=== PATIENT | male | born 1965 | race Caucasian/White ===

== ENCOUNTER 2020-04-03 14:53 | Outpatient (REF) | payer OTHER, SELFPAY | END 2020-04-03 14:54 | disposition home or self-care (01) | LOC: HO.LAB 14:53 | PROVIDERS: PCP Internal Medicine; Visit Provider Internal Medicine | DX: Z20.828 Contact with and (suspected) exposure to other viral communicable diseases (principal) | CPT/HCPCS: C9803; U0003 ==

== ENCOUNTER 2020-04-08 12:04 | Emergency (ER) | payer OTHER, SELFPAY ==
[2020-04-08 12:12] VITALS: BP 135/73; PULSE 99; RESP 18; TEMP 39; O2SAT 94; BMI 31.5
--- NOTE | 2020-04-08 12:21 | XR_ITS ---
EXAMINATION: PORTABLE CHEST 1 VIEW CLINICAL INFORMATION: SOB . COMPARISON: No recent pertinent prior studies are available for comparison. TECHNIQUE: Portable frontal view of the chest was obtained. FINDINGS: The lungs are mildly hypoexpanded with patchy bilateral airspace disease seen with a peripheral predominance. No significant effusion or pneumothorax. Cardiac silhouette is prominent although this may be technique related. No acute bony abnormality.. No focal infiltrate, effusion, edema, or pneumothorax. Cardiac and mediastinal silhouettes are within normal limits for technique. No acute bony abnormality seen. XR/XR chest 1V IMPRESSION: Although hypoexpanded, there is patchy bilateral airspace disease seen with a peripheral predominance. In the acute setting, viral or atypical infectious etiology would be suspected.
--- NOTE | 2020-04-08 12:21 | ECG_ITS ---
Test Reason : WEAKNESS Blood Pressure : / mmHG Vent. Rate : 067 BPM Atrial Rate : 067 BPM P-R Int : 184 ms QRS Dur : 100 ms QT Int : 418 ms P-R-T Axes : 032 126 023 degrees QTc Int : 441 ms Normal sinus rhythm Right axis deviation Nonspecific T wave abnormality Abnormal ECG No previous ECGs available Referred By: Richi Reyes Electronically Signed By:Brendan Barth
[2020-04-08] MEDS: Acetaminophen 325 MG TABLET 975 MG PO (12:29)
[2020-04-08 12:38] LABS: Basophils Percent Auto 0.1 % (0-2); Hematocrit 43.5 % (42-52); Hemoglobin 15.2 g/dl (14.0-18.0); Imm Gran Abs Auto 0.02 X10*3/uL (0.00-0.03); Imm Gran Pct Auto 0.2 % (0.0-0.4); Lymphocytes Absolute Auto 1.2 X10*3/uL (1.2-4.9); Lymphocytes Percent Auto 12.9 % (20-40); MANUAL DIFF FLAG NO; Mean Corpuscular HGB Conc 34.9 g/dl (31.0-36.0); Mean Corpuscular Hemoglobin 30.5 pg (27.0-33.0); Mean Corpuscular Volume 87.3 fL (80-98); Mean Platelet Volume 11.1 fL (9.4-12.4); Monocytes Absolute Auto 0.6 X10*3/uL (0.1-1.2); Monocytes Percent Auto 6.1 % (2-11); Neutrophils Absolute Auto 7.5 X10*3/uL (2.0-8.3); Neutrophils Percent Auto 80.7 % (45-73); Platelet Count 170 X10*3/uL (160-400); Red Blood Count 4.98 X10*6/uL (4.60-5.80); Red Cell Distribution Width 12.4 % (11.0-16.0); White Blood Count 9.3 X10*3/uL (4.8-10.8)
[2020-04-08 12:47] LABS: INTERNATIONAL NORM RATIO 1.2 (0.9-1.1); Prothrombin Time 14.3 SEC (10.8-13.0)
[2020-04-08 12:49] LABS: Partial Thromboplastin Time 30.2 SEC (24.1-38.0)
[2020-04-08 12:50] LABS: D Dimer 541 NG/ML
[2020-04-08 13:06] LABS: Lactic Acid 1.9 mmol/L (0.5-2.0)
[2020-04-08 13:14] LABS: B Type Natriuretic Peptide < 10 pg/mL (<100); Troponin-I High Sensitivity < 3.5 ng/L (<3.5-35.0)
[2020-04-08 13:15] LABS: Alanine Aminotransferase 29 U/L (0-40); Albumin Level 3.8 g/dL (3.5-5.0); Alkaline Phosphatase 53 U/L (39-117); Anion Gap 16 (12-20); Aspartate Amino Transferase 33 U/L (5-37); Bilirubin Total 0.8 mg/dL (0.0-1.0); Blood Urea Nitrogen 19 mg/dL (9-16); C Reactive Protein 9.64 mg/dL (< or = 0.50); Calcium 8.1 mg/dL (8.4-10.2); Carbon Dioxide 21 mmol/L (22-29); Chloride 103 mmol/L (96-108); Creatinine Clr Calc Pharmacy 82.9; Estimated Glomerular Filt Rate > 60; Glucose Random 125 mg/dL (60-115); Lactate Dehydrogenase 340 U/L (118-273); Potassium 3.6 mmol/l (3.3-5.1); Sodium 136 mmol/L (135-145)
[2020-04-08 13:22] VITALS: BP 102/61; PULSE 92; RESP 20; TEMP 38.6; O2SAT 94
--- NOTE | 2020-04-08 13:26 | PC.NURSE ---
EATING APPLE SAUCE AND LYNNETTE ABI
[2020-04-08 13:30] LABS: Procalcitonin 0.05 ng/mL
[2020-04-08] MEDS: Ibuprofen 800 MG TABLET PO (14:11)
[2020-04-08 14:28] VITALS: O2SAT 91
--- NOTE | 2020-04-08 15:09 | ED.GENADULT ---
HPI - General Adult General Chief complaint: Weakness Stated complaint: +COVID,N/V,WEAKNESS Time Seen by Provider: 04/08/20 12:09 Source: patient and EMS Mode of arrival: EMS Limitations: no limitations History of Present Illness HPI narrative: This is a 54-year-old male who denies significant past medical history reports for the past 1 and 1/2 week he has had body aches, chills/cough which prompted him to get COVID tested on Friday (April 03 2020) for COVID-19 He his colon with stated that he tested positive and reports he has had continued worsening symptoms with body aches chills fever and some nausea but no vomiting and 1 episode of diarrhea. States he has not had any sick contacts or travel. Onset (ago): day(s) Radiation: non-radiation Associated symptoms: cough, fever/chills and nausea/vomiting Treatments prior to arrival: none Related Data Previous Rx's Medication Instructions Recorded albuterol sulfate 2 puff INHALATION Q4-6H PRN #18 g 04/08/20 azithromycin [Zithromax Z-Familia] 250 mg PO DAILY 5 Days #6 tab 04/08/20 benzonatate [Tessalon Perles] 100 mg PO BID PRN #10 cap 04/08/20 ibuprofen 800 mg PO Q8H PRN #20 tab 04/08/20 Allergies Allergy/AdvReac Type Severity Reaction Status Date / Time codeine Allergy Dizziness Verified 04/08/20 12:24 Review of Systems Review of Systems: Constitutional: No Weight loss, + Fever, + Chills, No Night Sweats, No Fatigue, No Malaise ENT/Mouth: No Hearing loss, No Ear Pain, + Nasal Congestion, + Sinus Pain, No Hoarseness, No sore throat, No Rhinorrhea, No Swallowing Difficulty Eyes: No Eye Pain, No Swelling, No Redness, No Foreign Body, No Discharge, No Vision Changes Cardiovascular: No Chest Pain, + SOB, No Dyspnea on Exertion, No Orthopnea, No Edema, No Palpitations Respiratory: + Cough, No Sputum, No Wheezing, No Smoke Exposure, No Dyspnea Gastrointestinal: No Nausea, No Vomiting, No Diarrhea, No Constipation, No abdominal Pain, No Hematochezia, No Melena Genitourinary: no irregular bleeding, No Dysuria, No Urinary Frequency, No Hematuria, No Urinary Incontinence, No Urgency, No Flank Pain, No Urinary Flow Changes, No Hesitancy Musculoskeletal: No joint pain, No Myalgias, No Joint Swelling Skin: No Skin Lesions, No rash Neuro: No Weakness, No Numbness, No Paresthesias, No Loss of Consciousness, No Dizziness, No Headache Psych: No Social Issues Heme/Lymph: No Bruising, No Bleeding,No Lymphadenopathy Endocrine: No Polyuria, No Polydipsia, No Temperature Intolerance Yes all other systems are reviewed and are negative [facility] Social History Social History Advance Directives: No Advance Directives Information Provided: No Physical Exam Vital Signs: Vital Signs: Last Vital Signs Temp 98.3 F 04/08/20 17:46 Pulse 71 04/08/20 17:46 Resp 19 04/08/20 17:46 BP 96/63 04/08/20 17:46 Pulse Ox 94 04/08/20 17:46 Body Mass Index 31.5 Reviewed Const: Other: Slightly diaphoretic General: cooperative and no acute distress; No intoxicated appearing Nutritional Appearance: average body habitus Orientation/consciousness: patient oriented x3 HENMT: Head: Yes normal to inspection Ears: hearing grossly normal bilaterally Eyes: General: appearance normal, both eyes and all related structures Visual Hodges: normal visual hodges by confrontation Neck: Neck: Yes normal visual inspection, No positive Brudzinski's sign, No positive Kernig's sign and No tender Thyroid: Thyroid normal Chest: Chest palpation & inspection: normal inspection of the chest Resp: Other: Dry bronchial cough Effort & Inspection: normal respiratory effort Auscultation: clear to auscultation bilaterally Cardio: Jugular venous distension: no JVD Rate: tachycardic Heart sounds: S1 normal heart sound present and S2 normal heart sound present GI: Inspection: Yes normal to inspection Percussion: Yes normal to percussion Auscultation: normal bowel sounds : General: Yes no CVA tenderness Back/Spine/Pelvis: Back: no CVA tenderness Skin: General skin exam: no rashes or lesions noted Neuro: General: patient oriented x3 Extrem: General: Yes normal to inspection Medical Decision Making MDM Narrative Medical decision making narrative: Labs overall stable consistent with COVID 19 disease. No leukocytosis. Slight elevation in D-dimer CT of the chest done no evidence of PE extensive pulmonary disease consistent with COVID-19. Patient fever improved with Tylenol and Motrin has been resting comfortably pulse ox at 95% on room air. Ambulatory steady gait no shortness of breath. Feels much better now that his temperature is down. No criteria for admission at this time did advise him to for self-monitoring, clear precaution return follow-up instructions provided. He feels comfortable plan. Stable for discharge. Lab Data Result diagrams: 04/08/20 12:04/08/20 12: Labs: Lab Results 04/08/20 04/08/20 04/08/20 Range/Units 12: 12: 12: WBC 9.3 (4.8-10.8) X10*3/uL RBC 4.98 (4.60-5.80) X10*6/uL Hgb 15.2 (14.0-18.0) g/dl Hct 43.5 (42-52) % MCV 87.3 (80-98) fL MCH 30.5 (27.0-33.0) pg MCHC 34.9 (31.0-36.0) g/dl RDW 12.4 (11.0-16.0) % Plt Count 170 (160-400) X10*3/uL MPV 11.1 (9.4-12.4) fL Immature Gran % (Auto) 0.2 (0.0-0.4) % Neut % (Auto) 80.7 H (45-73) % Lymph % (Auto) 12.9 L (20-40) % [place] % (Auto) 6.1 (2-11) % Eos % (Auto) 0.0 (0-4) % Baso % (Auto) 0.1 (0-2) % Lymph # (Auto) 1.2 (1.2-4.9) X10*3/uL [place] # (Auto) 0.6 (0.1-1.2) X10*3/uL Eos # (Auto) 0.0 (0.0-0.4) X10*3/uL Baso # (Auto) 0.0 (0.0-0.2) X10*3/uL Abs Immat Gran (auto) 0.02 (0.00-0.03) X10*3/uL Absolute Neuts (auto) 7.5 (2.0-8.3) X10*3/uL Absolute Nucleated RBC 0.000 (0.0-0.012) X10*3/uL Nucleated RBC % (auto) 0.0 (0.0-0.2) /100WBC PT 14.3 H (10.8-13.0) SEC INR 1.2 H (0.9-1.1) APTT 30.2 (24.1-38.0) SEC D-Dimer 541 NG/ML Sodium 136 (135-145) mmol/L Potassium 3.6 (3.3-5.1) mmol/l Chloride 103 (96-108) mmol/L Carbon Dioxide 21 L (22-29) mmol/L Anion Gap 16 (12-20) BUN 19 H (9-16) mg/dL Creatinine 1.22 (0.5-1.4) mg/dL Estim Creat Clear Calc 82.9 Estimated GFR > 60 Random Glucose 125 H (60-115) mg/dL Lactic Acid (0.5-2.0) mmol/L Calcium 8.1 L (8.4-10.2) mg/dL Total Bilirubin 0.8 (0.0-1.0) mg/dL AST 33 (5-37) U/L ALT 29 (0-40) U/L Alkaline Phosphatase 53 (39-117) U/L Lactate Dehydrogenase 340 H (118-273) U/L Troponin I High Sens (<3.5-35.0) ng/L C-Reactive Protein 9.64 H (< or = 0.50) mg/dL B-Natriuretic Peptide (<100) pg/mL Total Protein 7.0 (6.5-8.0) g/dL Albumin 3.8 (3.5-5.0) g/dL Procalcitonin ng/mL 04/08/20 04/08/20 04/08/20 Range/Units 12:26 12:26 12:26 WBC (4.8-10.8) X10*3/uL RBC (4.60-5.80) X10*6/uL Hgb (14.0-18.0) g/dl Hct (42-52) % MCV (80-98) fL MCH (27.0-33.0) pg MCHC (31.0-36.0) g/dl RDW (11.0-16.0) % Plt Count (160-400) X10*3/uL MPV (9.4-12.4) fL Immature Gran % (Auto) (0.0-0.4) % Neut % (Auto) (45-73) % Lymph % (Auto) (20-40) % [place] % (Auto) (2-11) % Eos % (Auto) (0-4) % Baso % (Auto) (0-2) % Lymph # (Auto) (1.2-4.9) X10*3/uL [place] # (Auto) (0.1-1.2) X10*3/uL Eos # (Auto) (0.0-0.4) X10*3/uL Baso # (Auto) (0.0-0.2) X10*3/uL Abs Immat Gran (auto) (0.00-0.03) X10*3/uL Absolute Neuts (auto) (2.0-8.3) X10*3/uL Absolute Nucleated RBC (0.0-0.012) X10*3/uL Nucleated RBC % (auto) (0.0-0.2) /100WBC PT (10.8-13.0) SEC INR (0.9-1.1) APTT (24.1-38.0) SEC D-Dimer NG/ML Sodium (135-145) mmol/L Potassium (3.3-5.1) mmol/l Chloride (96-108) mmol/L Carbon Dioxide (22-29) mmol/L Anion Gap (12-20) BUN (9-16) mg/dL Creatinine (0.5-1.4) mg/dL Estim Creat Clear Calc Estimated GFR Random Glucose (60-115) mg/dL Lactic Acid 1.9 (0.5-2.0) mmol/L Calcium (8.4-10.2) mg/dL Total Bilirubin (0.0-1.0) mg/dL AST (5-37) U/L ALT (0-40) U/L Alkaline Phosphatase (39-117) U/L Lactate Dehydrogenase (118-273) U/L Troponin I High Sens < 3.5 (<3.5-35.0) ng/L C-Reactive Protein (< or = 0.50) mg/dL B-Natriuretic Peptide < 10 (<100) pg/mL Total Protein (6.5-8.0) g/dL Albumin (3.5-5.0) g/dL Procalcitonin 0.05 ng/mL Imaging Data Chest x-ray: Radiologist's impression: [address] [address] XRay Report Signed Patient: Shola Danielson#: [id number] : 1965Acct:[id number] Age/Sex: 54 / MADM Date: 04/08/20 Loc: HO.ED Attending Dr: Ordering Physician: Richi Reyes NP Date of Service: 04/08/20 Procedure(s): XR chest 1V Accession Number(s): [id number] cc: Richi Reyes 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 COMPARISON: No recent pertinent prior studies are available for comparison. TECHNIQUE: Portable frontal view of the chest was obtained. FINDINGS: The lungs are mildly hypoexpanded with patchy bilateral airspace disease seen with a peripheral predominance. No significant effusion or pneumothorax. Cardiac silhouette is prominent although this may be technique related. No acute bony abnormality.. No focal infiltrate, effusion, edema, or pneumothorax. Cardiac and mediastinal silhouettes are within normal limits for technique. No acute bony abnormality seen. XR/XR chest 1V IMPRESSION: Although hypoexpanded, there is patchy bilateral airspace disease seen with a peripheral predominance. In the acute setting, viral or atypical infectious etiology would be suspected. 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 CT chest PE study: Radiologist's impression: [address] [address] [address] Scan Report Signed Patient: Shola Danielson#: [id number] : 1965Acct:[id number] Age/Sex: 54 / MADM Date: 04/08/20 Loc: HO.ED Attending Dr: Ordering Physician: Richi Reyes NP Date of Service: 04/08/20 Procedure(s): CT angio chest PE protocol Accession Number(s): [id number] cc: Richi Reyes NP~ EXAMINATION: CT ANGIOGRAM OF THE CHEST WITH AND WITHOUT CONTRAST (CT PULMONARY ANGIOGRAM FOR PE) CLINICAL INFORMATION: Reason for Exam SOB/ elevated ddimer / + COVID COMPARISON: None TECHNIQUE: Prior to contrast administration, noncontrast localization images were obtained. Subsequently, multidetector volumetric imaging was performed from the thoracic inlet to below the diaphragms following the administration of 80 mL Omnipaque 350 intravenous contrast. No contrast reaction reported Sagittal, coronal, and MIP oblique sagittal reformatted images were obtained on the CT workstation, uploaded to PACS, and reviewed. This CT examination was performed using dose optimization techniques as appropriate, variously including the following: *Automated exposure control *Adjustment of mA and/or kV according to patient size (this includes techniques or standardized protocols for targeted exams where dose is matched to indication/reason for exam; i.e. extremities or head) *Use of iterative reconstruction technique Total exam dose-length product 453 mGy-cm FINDINGS: QUALITY OF STUDY/CONTRAST BOLUS: Satisfactory. PULMONARY ARTERIES: No central or segmental pulmonary emboli. THORACIC AORTA: No aneurysm or dissection. LUNG: There is diffuse bilateral patchy central and peripheral airspace disease consistent with infiltrate. No large consolidation or mass seen. PLEURA: No pleural effusion or pneumothorax. MEDIASTINUM: Normal heart size. No pericardial effusion. No hilar or mediastinal lymphadenopathy. No evidence of septal bowing or right heart strain. The thyroid gland is mildly enlarged. CHEST WALL/AXILLA: No axillary or internal mammary lymphadenopathy. OSSEOUS STRUCTURES: No acute or suspicious osseous abnormality. Mild ventral spondylosis mid and lower dorsal spine. UPPER ABDOMEN: Unremarkable. No reflux of contrast into the hepatic veins to suggest elevated right heart pressures. CT/CT angio chest PE protocol IMPRESSION: No evidence of PE. No evidence of aortic aneurysm or dissection. Bilateral extensive airspace disease consistent with infiltrate likely related to Covid disease. Correlate with clinical exam. 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 ECG Data Interpretation: Normal sinus rhythm Rate 67 No previous available Discharge Plan Discharge Clinical Impression: COVID-19 Patient Disposition: Home, Self-Care Instructions: COVID-19 (Coronavirus Disease 2019) (ED) Additional Instructions: Supportive care as discussed Monitor your home oxygen level with the oxygen monitor devices I have reviewed with You (pulse oximeter) this is available [id number] at the local pharmacy [id number] Tylenol/Motrin per label instructions for fever and pain Plenty of fluids Self-isolation/social distancing for the remainder of the 14 days Return to emergency room if any concerns or worsening symptoms Thank you Prescriptions: New albuterol sulfate 90 mcg/actuation HFA aerosol inhaler 2 puff inhalation Q4-6H PRN (Reason: shortness of breath or wheezing) Qty: 18 RF: 0 ibuprofen 800 mg tablet 800 mg PO Q8H PRN (Reason: pain) Qty: 20 RF: 0 benzonatate [Tessalon Perles] 100 mg capsule 100 mg PO BID PRN (Reason: cough) Qty: 10 RF: 0 azithromycin [Zithromax Z-Familia] 250 mg tablet 250 mg PO DAILY 5 Days Qty: 6 RF: 0 Referrals: Tamera Ross MD [Primary Care Provider] - 1 week (Phone visit) Interventions: ED Discharge Assessment Last Done: 04/08/20 17:53
[2020-04-08 15:37] VITALS: BP 99/72; PULSE 73; RESP 22; TEMP 37.5; O2SAT 93
[2020-04-08 16:00] VITALS: BP 106/73; PULSE 67; RESP 15; TEMP 36.8; O2SAT 94
[2020-04-08] MEDS: iohexoL 350 MG/ML 100 ML INFUS..BTL 65 ML IV (16:37)
[2020-04-08 17:46] VITALS: BP 96/63; PULSE 71; RESP 19; TEMP 36.8; O2SAT 94
== END 2020-04-08 18:09 | disposition home or self-care (01) ==
PROVIDERS: Nurse Practitioner Primary Care; Emergency Provider Emergency Medicine; PCP Internal Medicine
DX: U07.1 COVID-19 (principal); M79.10 Myalgia, unspecified site; Z79.899 Other long term (current) drug therapy
CPT/HCPCS: 36415; 71045; 71275; 80053; 83605; 83615; 83880; 84145; 84484; 85025; 85379; 85610; 85730; 86140; 87040; 93005; 99284; Q9967

== ENCOUNTER 2020-04-18 12:38 | Outpatient (REF) | payer OTHER, SELFPAY | END 2020-04-18 12:39 | disposition home or self-care (01) | LOC: HO.LAB 12:38 | PROVIDERS: PCP Internal Medicine; Visit Provider Internal Medicine | DX: Z20.828 Contact with and (suspected) exposure to other viral communicable diseases (principal) | CPT/HCPCS: C9803; U0003 ==

== ENCOUNTER 2021-06-20 09:51 | Outpatient (REF) | payer OTHER, SELFPAY ==
[2021-06-20 11:05] LABS: MANUAL DIFF FLAG NO
[2021-06-20 11:11] LABS: Basophils Percent Auto 0.6 % (0-2); Eosinophils Absolute Auto 0.2 X10*3/uL (0.0-0.4); Eosinophils Percent Auto 3.7 % (0-4); Hematocrit 48.1 % (42.0-52.0); Hemoglobin 16.8 g/dl (14.0-18.0); Imm Gran Abs Auto 0.02 X10*3/uL (0.00-0.03); Imm Gran Pct Auto 0.4 % (0.0-0.4); Lymphocytes Absolute Auto 1.8 X10*3/uL (1.2-4.9); Lymphocytes Percent Auto 32.4 % (20-40); Mean Corpuscular HGB Conc 34.9 g/dl (31.0-36.0); Mean Corpuscular Hemoglobin 30.7 pg (27.0-33.0); Mean Corpuscular Volume 87.9 fL (80.0-98.0); Mean Platelet Volume 11.3 fL (9.4-12.4); Monocytes Absolute Auto 0.5 X10*3/uL (0.1-1.2); Monocytes Percent Auto 9.6 % (2-11); Neutrophils Absolute Auto 2.9 x10*3/uL (2.0-8.3); Neutrophils Percent Auto 53.3 % (45-73); Platelet Count 223 X10*3/uL (160-400); Red Blood Count 5.47 X10*6/uL (4.60-5.80); Red Cell Distribution Width 12.7 % (11.0-16.0); White Blood Count 5.4 X10*3/uL (4.8-10.8)
[2021-06-20 11:42] LABS: Alanine Aminotransferase 64 U/L (0-40); Albumin Level 4.2 g/dL (3.5-5.0); Alkaline Phosphatase 65 U/L (39-117); Anion Gap 13 (12-20); Aspartate Amino Transferase 36 U/L (5-37); Bilirubin Total 0.9 mg/dL (0.0-1.0); Blood Urea Nitrogen 17 mg/dL (9-16); Calcium 9.5 mg/dL (8.4-10.2); Carbon Dioxide 24 mmol/L (22-29); Chloride 107 mmol/L (96-108); Cholesterol 231 mg/dL; Estimated Glomerular Filt Rate > 60; Glucose Fasting 96 mg/dL (60-99); HDL Cholesterol 40 mg/dL; LDL Cholesterol Calculated 149 mg/dl; Potassium 4.1 mmol/L (3.3-5.1); Sodium 140 mmol/L (135-145); Total Protein 7.3 g/dL (6.5-8.0); Triglycerides 211 mg/dL
[2021-06-20 12:06] LABS: Prostate Specific Antigen Scr 0.71 ng/mL (<0.05-4.0); TSH reflex Free T4 5.24 uIU/mL (0.32-4.0)
[2021-06-20 12:47] LABS: Free T4 (Free Thyroxine) 0.83 ng/dL (0.71-1.85)
[2021-06-20 14:00] LABS: Appearance Urine HAZY; Color Urine YELLOW; Glucose Urine UA NEG (NEG); Leukocyte Esterase Urine NEG (NEG); Nitrite Urine NEG (NEG); Urine Blood NEG (NEG); Urine Ketones NEG (NEG); Urine Protein NEG (NEG-TRACE)
[2021-06-24 16:26] LABS: Testosterone, Total 538 ng/dL (250-1100)
== END 2021-06-20 09:52 | disposition home or self-care (01) ==
LOC: HO.HMGCLDS 09:51
PROVIDERS: PCP Nurse Practitioner Family; Visit Provider Nurse Practitioner Family
DX: Z00.00 Encounter for general adult medical examination without abnormal findings (principal); N52.9 Male erectile dysfunction, unspecified; R74.8 Abnormal levels of other serum enzymes; Z12.5 Encounter for screening for malignant neoplasm of prostate
CPT/HCPCS: 36415; 80053; 80061; 81003; 84153; 84402; 84403; 84439; 84443; 85025

== ENCOUNTER 2021-06-23 08:14 | Outpatient (REF) | payer OTHER, SELFPAY ==
[2021-06-23 11:31] LABS: Cholesterol 242 mg/dL; HDL Cholesterol 43 mg/dL; LDL Cholesterol Calculated 144 mg/dl; Triglycerides 275 mg/dL
[2021-06-23 11:54] LABS: TSH reflex Free T4 6.04 uIU/mL (0.32-4.0)
[2021-06-23 12:33] LABS: Free T4 (Free Thyroxine) 0.96 ng/dL (0.71-1.85)
[2021-06-25 07:42] LABS: HBc Num1 0.06 S/CO (0.00-0.79); Hepatitis B Core Antibody Nonreactive (Nonreactive); ~HepC Num1 0.08 S/CO (0.00-0.79); ~Hepatitis B Surface Antibody NONREACTIVE (Nonreactive); ~Hepatitis C Antibody Nonreactive (Nonreactive)
[2021-06-25 07:49] LABS: HBsAGNum1 0.23 S/CO (0.00-0.99); Hepatitis B Surface Antigen Negative (Negative)
[2021-06-25 21:16] LABS: Thyroid Peroxidase Antibodies 578 IU/mL (<9)
[2021-06-27 08:35] LABS: Hepatitis A Antibody IgM 0.23 Index (0-0.79); ~Hepatitis A Antibody IgM Nonreactive (Nonreactive)
== END 2021-06-23 08:15 | disposition home or self-care (01) ==
LOC: HO.HMGCLDS 08:14
PROVIDERS: PCP Nurse Practitioner Family; Visit Provider Nurse Practitioner Family
DX: E78.5 Hyperlipidemia, unspecified (principal); R74.8 Abnormal levels of other serum enzymes; R79.89 Other specified abnormal findings of blood chemistry
CPT/HCPCS: 36415; 80061; 84439; 84443; 86376; 86704; 86706; 86709; 86803; 87340